=== PATIENT | female | born 1990 | race Caucasian/White ===

== ENCOUNTER 2017-01-18 21:28 | Emergency (ER) | payer OTHER ==
[2017-01-18 21:36] VITALS: RESP 18
--- NOTE | 2017-01-18 22:05 | ED ---
General Adult HPI - General Chief complaint: Abdominal Pain Stated complaint: Abd Pain Time Seen by Provider: 01/18/17 21:42 Source: patient, RN notes reviewed Mode of arrival: ambulatory Limitations: no limitations - History of Present Illness Initial comments: This is a 26-year-old female presents with right lower quadrant pain 2.5 weeks. Patient states pain is intermittent and is associated with diarrhea. Patient also admits to some nausea. Patient denies any vaginal discharge or vaginal bleeding or cramping. Patient states she does have history of ovarian cysts. Patient states she had a test at her PCP today which was negative. Patient states she's also been having fevers daily associated with this pain. Patient denies any vomiting. Patient denies any new sexual partners. Patient denies any dysuria, hematuria, hematochezia. Patient denies any recent fever, chills, shortness breath, chest pain, back pain, numbness, tingling, hematuria, headache, or visual changes, or any other complaints. - Related Data Home Medications Medication Instructions Recorded Confirmed Multivitamins, Thera [Multivitamin] 1 tab PO DAILY 06/21/16 01/18/17 Allergies Allergy/AdvReac Type Severity Reaction Status Date / Time No Known Allergies Allergy Verified 01/18/17 22:22 Review of Systems ROS Statement: Those systems with pertinent positive or pertinent negative responses have been documented in the HPI. ROS Other: All systems not noted in ROS Statement are negative. Past Medical History Additional Past Medical History / Comment(s): MITRAL VALVE PROLAPSE, HEART MURMUR, ovarian cyst History of Any Multi-Drug Resistant Organisms: None Reported Past Surgical History: No Surgical Hx Reported Past Psychological History: Anxiety Smoking Status: Never smoker Past Alcohol Use History: None Reported Past Drug Use History: None Reported General Exam - General Exam Comments Initial Comments: General: The patient is awake and alert, in no distress, and does not appear acutely ill. Eye: Pupils are equal, round and reactive to light, extra-ocular movements are intact. No nystagmus. There is normal conjunctiva bilaterally. No signs of icterus. Ears: TMs pink and pearly with intact cone of light bilaterally. Normal external ear canals Nose: Nasal turbinates pink and moist Mouth and throat: There are moist mucous membranes and no oral lesions. Neck: The neck is supple, there is no tenderness or JVD. Cardiovascular: There is a regular rate and rhythm. No murmur, rub or gallop is appreciated. Respiratory: Lungs are clear to auscultation, respirations are non-labored, breath sounds are equal. No wheezes, stridor, rales, or rhonchi. Gastrointestinal: Mild tenderness to palpation in the right lower quadrant and suprapubic area. Soft, non-distended abdomen without masses or organomegaly noted. There is no rebound or guarding present. No CVA tenderness. Bowel sounds are unremarkable. Musculoskeletal: Normal ROM, no tenderness. Strength 5/5. Sensation intact. Radial pulses equal bilaterally 2+. Neurological: A&O x 3. CN II-XII intact, There are no obvious motor or sensory deficits. Coordination appears grossly intact. Speech is normal. Skin: Skin is warm and dry and no rashes or lesions are noted. Psychiatric: Cooperative, appropriate mood & affect, normal judgment. Limitations: no limitations External exam: Present: normal external exam. Absent: erythema, swelling, lesions Speculum exam: Present: normal speculum exam, vaginal discharge (white/cream cervical mucus present. ). Absent: erythema, vaginal bleeding By manual exam: Present: normal by manual exam. Absent: cervical motion tenderness, adnexal tenderness, adnexal mass, uterine enlargement, uterine tenderness Course Vital Signs 01/18/17 01/19/17 21:31 00:24 Temperature 100 F H 99.0 F Pulse Rate 89 78 Respiratory 18 18 Rate Blood Pressure 117/67 107/51 O2 Sat by Pulse 100 Oximetry Medical Decision Making - Medical Decision Making This is a 26-year-old female presents with right lower quadrant pain 2.5. On physical exam patient is well-appearing with a fever in the EC. Mild tenderness to palpation in the right lower quadrant and suprapubic area. Soft, non- distended abdomen without masses or organomegaly noted. There is no rebound or guarding present. No CVA tenderness. Bowel sounds are unremarkable. No adnexal tenderness or cervical motion tenderness on pelvic exam. Normal speculum exam. Basic labs are drawn. Influenza was checked and came back negative. A UA is done and is negative for UTI. Urine culture pending. A CT scan of the abdomen and pelvis was done and reviewed showing: There is a small amount of free fluid in cul-de-sac. Otherwise negative computed tomography scan of the abdomen and pelvis. Appendix is not seen. There is no sign of appendicitis. Report by Dr. Collins. Discussed results with patient and her mother. I discussed use of Tylenol and Motrin for any pain. Patient was offered a prescription for Zofran but patient refused and states she already has medication at home that she uses for upset stomach. I discussed the patient should drink plenty of fluids. Discussed stool cultures. Discussed return parameters. Patient is afebrile and well-appearing upon discharge. Discussed that patient should follow up with PCP in one to 2 days or return to the [facility] for any worsening symptoms or for any further concerns. Patient was receptive to this plan and patient will be discharged home. I discussed this case with attending physician Dr. Marques who agrees the plan as stated above. - Lab Data Result diagrams: 01/18/17 22:25 01/18/17 22:25 Lab Results 01/18/17 01/18/17 01/18/17 Range/Units 22:14 22:14 22:14 WBC (3.8-10.6) k/uL RBC (3.80-5.40) m/uL Hgb (11.4-16.0) gm/dL Hct (34.0-46.0) % MCV (80.0-100.0) fL MCH (25.0-35.0) pg MCHC (31.0-37.0) g/dL RDW (11.5-15.5) % Plt Count (150-450) k/uL Neutrophils % % Lymphocytes % % Monocytes % % Eosinophils % % Basophils % % Neutrophils # (1.3-7.7) k/uL Lymphocytes # (1.0-4.8) k/uL Monocytes # (0-1.0) k/uL Eosinophils # (0-0.7) k/uL Basophils # (0-0.2) k/uL PT (9.0-12.0) sec INR (<1.1) APTT (22.0-30.0) sec Sodium (137-145) mmol/L Potassium (3.5-5.1) mmol/L Chloride (98-107) mmol/L Carbon Dioxide (22-30) mmol/L Anion Gap mmol/L BUN (7-17) mg/dL Creatinine (0.52-1.04) mg/dL Est GFR (MDRD) Af Amer (>60 ml/min/1.73 sqM) Est GFR (MDRD) Non-Af (>60 ml/min/1.73 sqM) Glucose (74-99) mg/dL Plasma Lactic Acid Juan Francisco (0.7-2.0) mmol/L Calcium (8.4-10.2) mg/dL Total Bilirubin (0.2-1.3) mg/dL AST (14-36) U/L ALT (9-52) U/L Alkaline Phosphatase (38-126) U/L Total Protein (6.3-8.2) g/dL Albumin (3.5-5.0) g/dL Amylase (30-110) U/L Lipase (23-300) U/L HCG, Quant mIU/mL Urine Color Light Yellow Urine Appearance Clear (Clear) Urine pH 6.5 (5.0-8.0) Ur Specific [place] 1.010 (1.001-1.035) Urine Protein Negative (Negative) Urine Glucose (UA) Negative (Negative) Urine Ketones Negative (Negative) Urine Blood Negative (Negative) Urine Nitrite Negative (Negative) Urine Bilirubin Negative (Negative) Urine Urobilinogen <2.0 (<2.0) mg/dL Ur Leukocyte Esterase Negative (Negative) Urine HCG, Qual Not Detected (Not Detectd) Influenza Type A RNA Not Detected (Not Detectd) Influenza Type B (PCR) Not Detected (Not Detectd) Trichomonas Ag (Rapid) (Negative) 01/18/17 01/18/17 01/18/17 Range/Units 22:25 22:25 22:25 WBC 8.7 (3.8-10.6) k/uL RBC 4.59 (3.80-5.40) m/uL Hgb 13.8 (11.4-16.0) gm/dL Hct 41.9 (34.0-46.0) % MCV 91.2 (80.0-100.0) fL MCH 30.1 (25.0-35.0) pg MCHC 33.0 (31.0-37.0) g/dL RDW 12.5 (11.5-15.5) % Plt Count 250 (150-450) k/uL Neutrophils % 62 % Lymphocytes % 29 % Monocytes % 5 % Eosinophils % 1 % Basophils % 1 % Neutrophils # 5.4 (1.3-7.7) k/uL Lymphocytes # 2.5 (1.0-4.8) k/uL Monocytes # 0.5 (0-1.0) k/uL Eosinophils # 0.1 (0-0.7) k/uL Basophils # 0.1 (0-0.2) k/uL PT (9.0-12.0) sec INR (<1.1) APTT (22.0-30.0) sec Sodium 144 (137-145) mmol/L Potassium 4.1 (3.5-5.1) mmol/L Chloride 102 (98-107) mmol/L Carbon Dioxide 27 (22-30) mmol/L Anion Gap 15 mmol/L BUN 13 (7-17) mg/dL Creatinine 0.90 (0.52-1.04) mg/dL Est GFR (MDRD) Af Amer >60 (>60 ml/min/1.73 sqM) Est GFR (MDRD) Non-Af >60 (>60 ml/min/1.73 sqM) Glucose 97 (74-99) mg/dL Plasma Lactic Acid Juan Francisco 1.7 (0.7-2.0) mmol/L Calcium 10.3 H (8.4-10.2) mg/dL Total Bilirubin 0.5 (0.2-1.3) mg/dL AST 20 (14-36) U/L ALT 32 (9-52) U/L Alkaline Phosphatase 53 (38-126) U/L Total Protein 8.4 H (6.3-8.2) g/dL Albumin 4.9 (3.5-5.0) g/dL Amylase 72 (30-110) U/L Lipase 91 (23-300) U/L HCG, Quant <2.4 mIU/mL Urine Color Urine Appearance (Clear) Urine pH (5.0-8.0) Ur Specific [place] (1.001-1.035) Urine Protein (Negative) Urine Glucose (UA) (Negative) Urine Ketones (Negative) Urine Blood (Negative) Urine Nitrite (Negative) Urine Bilirubin (Negative) Urine Urobilinogen (<2.0) mg/dL Ur Leukocyte Esterase (Negative) Urine HCG, Qual (Not Detectd) Influenza Type A RNA (Not Detectd) Influenza Type B (PCR) (Not Detectd) Trichomonas Ag (Rapid) (Negative) 01/18/17 01/18/17 Range/Units 22:25 22:50 WBC (3.8-10.6) k/uL RBC (3.80-5.40) m/uL Hgb (11.4-16.0) gm/dL Hct (34.0-46.0) % MCV (80.0-100.0) fL MCH (25.0-35.0) pg MCHC (31.0-37.0) g/dL RDW (11.5-15.5) % Plt Count (150-450) k/uL Neutrophils % % Lymphocytes % % Monocytes % % Eosinophils % % Basophils % % Neutrophils # (1.3-7.7) k/uL Lymphocytes # (1.0-4.8) k/uL Monocytes # (0-1.0) k/uL Eosinophils # (0-0.7) k/uL Basophils # (0-0.2) k/uL PT 10.9 (9.0-12.0) sec INR 1.1 (<1.1) APTT 25.1 (22.0-30.0) sec Sodium (137-145) mmol/L Potassium (3.5-5.1) mmol/L Chloride (98-107) mmol/L Carbon Dioxide (22-30) mmol/L Anion Gap mmol/L BUN (7-17) mg/dL Creatinine (0.52-1.04) mg/dL Est GFR (MDRD) Af Amer (>60 ml/min/1.73 sqM) Est GFR (MDRD) Non-Af (>60 ml/min/1.73 sqM) Glucose (74-99) mg/dL Plasma Lactic Acid Juan Francisco (0.7-2.0) mmol/L Calcium (8.4-10.2) mg/dL Total Bilirubin (0.2-1.3) mg/dL AST (14-36) U/L ALT (9-52) U/L Alkaline Phosphatase (38-126) U/L Total Protein (6.3-8.2) g/dL Albumin (3.5-5.0) g/dL Amylase (30-110) U/L Lipase (23-300) U/L HCG, Quant mIU/mL Urine Color Urine Appearance (Clear) Urine pH (5.0-8.0) Ur Specific [place] (1.001-1.035) Urine Protein (Negative) Urine Glucose (UA) (Negative) Urine Ketones (Negative) Urine Blood (Negative) Urine Nitrite (Negative) Urine Bilirubin (Negative) Urine Urobilinogen (<2.0) mg/dL Ur Leukocyte Esterase (Negative) Urine HCG, Qual (Not Detectd) Influenza Type A RNA (Not Detectd) Influenza Type B (PCR) (Not Detectd) Trichomonas Ag (Rapid) Negative (Negative) Disposition Clinical Impression: Diarrhea Disposition: HOME SELF-CARE Condition: Good Instructions: Chronic Diarrhea (ED) Additional Instructions: Please of stool cultures done. Please use Tylenol and Motrin for any pain. Please follow-up with her PCP tomorrow or return to the [facility] for any worsening symptoms or for any further concerns. Referrals: Layla Mccann DO [Primary Care Provider] - 1-2 days Time of Disposition: 00:47
[2017-01-18] MEDS ORDERED: SODIUM CHLORIDE 0.9% 1,000 ML IV ONE (22:07)
[2017-01-18] MEDS ORDERED: ACETAMINOPHEN TAB 500 MG TAB PO STA (22:11)
[2017-01-18 22:49] LABS: Basophils # (A) 0.1 k/uL (0-0.2); Basophils % (A) 1 %; CH 30.5; CHCM 33.6; Eosinophils # (A) 0.1 k/uL (0-0.7); Eosinophils % (A) 1 %; HCT 41.9 % (34.0-46.0); HDW 2.53; HGB 13.8 gm/dL (11.4-16.0); Luc % (Auto) 2; Lymphocytes # (A) 2.5 k/uL (1.0-4.8); Lymphocytes % (A) 29 %; MCH 30.1 pg (25.0-35.0); MCV 91.2 fL (80.0-100.0); Mean Platelet Volume 7.3; Monocytes # (A) 0.5 k/uL (0-1.0); Monocytes % (A) 5 %; Neutrophils # (A) 5.4 k/uL (1.3-7.7); Neutrophils % (A) 62 %; RBC 4.59 m/uL (3.80-5.40); RDW 12.5 % (11.5-15.5); WBC 8.7 k/uL (3.8-10.6); WBC (Perox) 8.49
[2017-01-18 22:52] LABS: Appearance,Urine Clear (Clear); Bilirubin,Urine Negative (Negative); Glucose,Urine (UA) Negative (Negative); Ketones,Urine Negative (Negative); Leukocyte Esterase,Urine Negative (Negative); Nitrite,Urine Negative (Negative); PH, Urine 6.5 (5.0-8.0); Protein,Urine Negative (Negative); UA Billing (MACRO vs. MICRO) CHEM; Urobilinogen,Urine <2.0 mg/dL (<2.0)
[2017-01-18 22:57] LABS: INR 1.1 (<1.1); Partial Thromboplastin Time 25.1 sec (22.0-30.0); Prothrombin Time 10.9 sec (9.0-12.0)
[2017-01-18 23:02] LABS: ALT 32 U/L (9-52); AST 20 U/L (14-36); Alkaline Phosphatase 53 U/L (38-126); Amylase 72 U/L (30-110); Anion Gap 15 mmol/L; Blood Urea Nitrogen 13 mg/dL (7-17); Calcium 10.3 mg/dL (8.4-10.2); Carbon Dioxide 27 mmol/L (22-30); Chloride 102 mmol/L (98-107); Glucose 97 mg/dL (74-99); Non-African American GFR(MDRD) >60 (>60 ml/min/1.73 sqM); Potassium 4.1 mmol/L (3.5-5.1); Sodium 144 mmol/L (137-145); Total Bilirubin 0.5 mg/dL (0.2-1.3); Total Protein 8.4 g/dL (6.3-8.2)
[2017-01-18] MEDS ORDERED: RX INFO: IV CONTRAST WAS GIVEN 1 EACH MISC MISCELLANE PRN (23:14)
[2017-01-18 23:18] LABS: HCG,Quantitative Serum <2.4 mIU/mL
--- NOTE | 2017-01-19 00:06 | CT ---
EXAMINATION TYPE: CT abdomen pelvis w con DATE OF EXAM: 01/18/2017 11:59 PM COMPARISON: NONE HISTORY: RLQ pain CT DLP: 317.80 mGycm Automated exposure control for dose reduction was used. TECHNIQUE: Helical acquisition of images was performed from the lung bases through the pelvis. CONTRAST: Performed without Oral Contrast and with IV Contrast, patient injected with 100 mL of Omnipaque 300. FINDINGS: Lung bases are clear. There is no pleural effusion. Liver spleen pancreas gallbladder appear normal. Bile ducts are not dilated. There is no adrenal mass. Kidneys show satisfactory contrast opacification. There is no hydronephrosi s. Bladder distends smoothly. There is no evidence of a pelvic mass. There is a small amount of free fluid in the cul-de-sac. Uterus is anteverted. Bony structures are intact. Appendix is not seen. Ther e is no sign of appendicitis. I see no intestinal wall thickening. There is no retroperitoneal adenop athy. IMPRESSION: THERE IS A SMALL AMOUNT OF FREE FLUID IN THE CUL-DE-SAC. OTHERWISE NEGATIVE CT SCAN OF THE ABDOMEN AN D PELVIS. APPENDIX IS NOT SEEN. THERE IS NO SIGN OF APPENDICITIS.
[2017-01-19 00:26] VITALS: BP 107/51; PULSE 78; TEMP 99
[2017-01-22 09:54] LABS: Chlamydia/GC Source Vaginal
== END 2017-01-19 01:02 | disposition home or self-care (01) ==
LOC: EC 21:28
DX: R19.7 Diarrhea, unspecified (principal); R10.31 Right lower quadrant pain; R11.0 Nausea; Z79.899 Other long term (current) drug therapy
CPT/HCPCS: 96360 ×2; 99284 ×2; 36415; 80053; 87591; 87491; 82150; 83605; 83690; 85025; 85610; 85730; 81003; 81025; 84702; 87040; 87808; 87070; 87086; 87205; 87502; 74177; Q9967

== ENCOUNTER 2017-03-25 20:29 | Emergency (ER) | payer OTHER ==
[2017-03-25] MEDS ORDERED: ACETAMINOPHEN TAB 500 MG TAB PO STA (20:54)
--- NOTE | 2017-03-25 20:54 | ED ---
General Adult HPI - General Chief complaint: Urogenital Stated complaint: Abd Pain Time Seen by Provider: 03/25/17 20:44 Source: patient, RN notes reviewed Mode of arrival: ambulatory Limitations: no limitations - History of Present Illness Initial comments: This a 26-year-old female presents emergency Department chief complaint of lower abdominal pain. Patient states started today she was seen at [facility] today and had a urinalysis, test and an x-ray which showed no acute abnormality. Patient states that she was told to go to ER if symptoms worsen. She states that she seen the pain is worsening and she also noticed some blood when she urinated. Patient has no history kidney stones. 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 She states she's had repeat exams. Patient states she was told she had ovarian cysts in the past states that this pain is slightly different. Patient states that she now she had a fever and states that she actually has actually taken ibuprofen already. Patient denies any back pain, cough or chest congestion. - Related Data Home Medications Medication Instructions Recorded Confirmed Ascorbic Acid [Vitamin C] 500 mg PO DAILY 03/25/17 03/25/17 Cholecalciferol [Vitamin D3] 400 unit PO DAILY 03/25/17 03/25/17 Diazepam 2 mg PO TID PRN 03/25/17 03/25/17 Magnesium 200 mg PO DAILY 03/25/17 03/25/17 PARoxetine [Paxil] 5 mg PO DAILY 03/25/17 03/25/17 Allergies Allergy/AdvReac Type Severity Reaction Status Date / Time No Known Allergies Allergy Verified 03/25/17 20:52 Review of Systems ROS Statement: Those systems with pertinent positive or pertinent negative responses have been documented in the HPI. ROS Other: All systems not noted in ROS Statement are negative. Past Medical History Additional Past Medical History / Comment(s): MITRAL VALVE PROLAPSE, HEART MURMUR, ovarian cyst History of Any Multi-Drug Resistant Organisms: None Reported Past Surgical History: No Surgical Hx Reported Past Psychological History: Anxiety Smoking Status: Never smoker Past Alcohol Use History: None Reported Past Drug Use History: None Reported General Exam Limitations: no limitations General appearance: alert, in no apparent distress Respiratory exam: Present: normal lung sounds bilaterally. Absent: respiratory distress, wheezes, rales, rhonchi, stridor Cardiovascular Exam: Present: regular rate, normal rhythm, normal heart sounds. Absent: systolic murmur, diastolic murmur, rubs, gallop, clicks GI/Abdominal exam: Present: soft, tenderness (Moderate lower abdominal tenderness, right lower, suprapubic region), normal bowel sounds. Absent: distended, guarding, rebound, rigid Back exam: Absent: CVA tenderness (R), CVA tenderness (L) Skin exam: Present: warm, dry, intact, normal color. Absent: rash Course Vital Signs 03/25/17 03/25/17 20:32 22:18 Temperature 100.4 F H 100.1 F H Pulse Rate 82 88 Respiratory 16 18 Rate Blood Pressure 113/77 117/57 O2 Sat by Pulse 100 98 Oximetry Medical Decision Making - Medical Decision Making 26-year-old female presented emergency from for abdominal pain. Patient CT did not show any evidence of inflammatory changes or show no evidence of acute ( though Was not identified. Patient does have a ovarian cyst 1.5 cm patient's pain is below McBurney's point. Patient is left-sided to have acute process this time. Patient was evaluated by Dr. Wheeler increase plan she'll be discharged follow-up return parameters were discussed. - Lab Data Result diagrams: 03/25/17 20:50 03/25/17 20:50 Lab Results 03/25/17 03/25/17 03/25/17 Range/Units 20:38 20:38 20:50 WBC 14.0 H (3.8-10.6) k/uL RBC 4.63 (3.80-5.40) m/uL Hgb 13.8 (11.4-16.0) gm/dL Hct 42.7 (34.0-46.0) % MCV 92.3 (80.0-100.0) fL MCH 29.9 (25.0-35.0) pg MCHC 32.4 (31.0-37.0) g/dL RDW 12.1 (11.5-15.5) % Plt Count 205 (150-450) k/uL Neutrophils % 78 % Lymphocytes % 15 % Monocytes % 5 % Eosinophils % 1 % Basophils % 0 % Neutrophils # 10.9 H (1.3-7.7) k/uL Lymphocytes # 2.1 (1.0-4.8) k/uL Monocytes # 0.7 (0-1.0) k/uL Eosinophils # 0.1 (0-0.7) k/uL Basophils # 0.0 (0-0.2) k/uL Sodium (137-145) mmol/L Potassium (3.5-5.1) mmol/L Chloride (98-107) mmol/L Carbon Dioxide (22-30) mmol/L Anion Gap mmol/L BUN (7-17) mg/dL Creatinine (0.52-1.04) mg/dL Est GFR (MDRD) Af Amer (>60 ml/min/1.73 sqM) Est GFR (MDRD) Non-Af (>60 ml/min/1.73 sqM) Glucose (74-99) mg/dL Calcium (8.4-10.2) mg/dL Total Bilirubin (0.2-1.3) mg/dL AST (14-36) U/L ALT (9-52) U/L Alkaline Phosphatase (38-126) U/L Total Protein (6.3-8.2) g/dL Albumin (3.5-5.0) g/dL Lipase (23-300) U/L Urine Color Light Yellow Urine Appearance Clear (Clear) Urine pH 8.0 (5.0-8.0) Ur Specific Sim[place] 1.007 (1.001-1.035) Urine Protein Negative (Negative) Urine Glucose (UA) Negative (Negative) Urine Ketones Negative (Negative) Urine Blood Small H (Negative) Urine Nitrite Negative (Negative) Urine Bilirubin Negative (Negative) Urine Urobilinogen <2.0 (<2.0) mg/dL Ur Leukocyte Esterase Negative (Negative) Urine WBC <1 (0-5) /hpf Ur Squamous Epith Cells 1 (0-4) /hpf Urine Bacteria Rare H (None) /hpf Urine HCG, Qual Not Detected (Not Detectd) 03/25/17 Range/Units 20:50 WBC (3.8-10.6) k/uL RBC (3.80-5.40) m/uL Hgb (11.4-16.0) gm/dL Hct (34.0-46.0) % MCV (80.0-100.0) fL MCH (25.0-35.0) pg MCHC (31.0-37.0) g/dL RDW (11.5-15.5) % Plt Count (150-450) k/uL Neutrophils % % Lymphocytes % % Monocytes % % Eosinophils % % Basophils % % Neutrophils # (1.3-7.7) k/uL Lymphocytes # (1.0-4.8) k/uL Monocytes # (0-1.0) k/uL Eosinophils # (0-0.7) k/uL Basophils # (0-0.2) k/uL Sodium 145 (137-145) mmol/L Potassium 3.7 (3.5-5.1) mmol/L Chloride 105 (98-107) mmol/L Carbon Dioxide 27 (22-30) mmol/L Anion Gap 13 mmol/L BUN 12 (7-17) mg/dL Creatinine 0.80 (0.52-1.04) mg/dL Est GFR (MDRD) Af Amer >60 (>60 ml/min/1.73 sqM) Est GFR (MDRD) Non-Af >60 (>60 ml/min/1.73 sqM) Glucose 93 (74-99) mg/dL Calcium 10.0 (8.4-10.2) mg/dL Total Bilirubin 0.4 (0.2-1.3) mg/dL AST 31 (14-36) U/L ALT 55 H (9-52) U/L Alkaline Phosphatase 67 (38-126) U/L Total Protein 8.1 (6.3-8.2) g/dL Albumin 5.0 (3.5-5.0) g/dL Lipase 71 (23-300) U/L Urine Color Urine Appearance (Clear) Urine pH (5.0-8.0) Ur Specific [place] (1.001-1.035) Urine Protein (Negative) Urine Glucose (UA) (Negative) Urine Ketones (Negative) Urine Blood (Negative) Urine Nitrite (Negative) Urine Bilirubin (Negative) Urine Urobilinogen (<2.0) mg/dL Ur Leukocyte Esterase (Negative) Urine WBC (0-5) /hpf Ur Squamous Epith Cells (0-4) /hpf Urine Bacteria (None) /hpf Urine HCG, Qual (Not Detectd) Disposition Clinical Impression: Ovarian cyst, Abdominal pain Disposition: HOME SELF-CARE Condition: Stable Instructions: Ovarian Cyst (ED) Additional Instructions: Please return to the Emergency Department if symptoms worsen or any other concerns. Referrals: Layla Mccann DO [Primary Care Provider] - 1-2 days Time of Disposition: 00:28
[2017-03-25 21:12] LABS: Basophils % (A) 0 %; CH 30.5; CHCM 33.2; Eosinophils # (A) 0.1 k/uL (0-0.7); Eosinophils % (A) 1 %; HCT 42.7 % (34.0-46.0); HDW 2.28; HGB 13.8 gm/dL (11.4-16.0); Luc % (Auto) 1; Lymphocytes # (A) 2.1 k/uL (1.0-4.8); Lymphocytes % (A) 15 %; MCH 29.9 pg (25.0-35.0); MCHC 32.4 g/dL (31.0-37.0); MCV 92.3 fL (80.0-100.0); Mean Platelet Volume 7.4; Monocytes # (A) 0.7 k/uL (0-1.0); Monocytes % (A) 5 %; Neutrophils # (A) 10.9 k/uL (1.3-7.7); Neutrophils % (A) 78 %; RBC 4.63 m/uL (3.80-5.40); RDW 12.1 % (11.5-15.5); WBC (Perox) 13.87
[2017-03-25 21:18] LABS: Appearance,Urine Clear (Clear); Bacteria,Urine Rare /hpf; Bilirubin,Urine Negative (Negative); Glucose,Urine (UA) Negative (Negative); Ketones,Urine Negative (Negative); Leukocyte Esterase,Urine Negative (Negative); Nitrite,Urine Negative (Negative); Particle Count 608; Protein,Urine Negative (Negative); Specific Gravity,Urine 1.007 (1.001-1.035); Squamous Epithelial Cell,Urine 1 /hpf (0-4); UA Billing (MACRO vs. MICRO) MICRO; Urobilinogen,Urine <2.0 mg/dL (<2.0); WBC,Urine <1 /hpf (0-5)
[2017-03-25 21:32] LABS: ALT 55 U/L (9-52); AST 31 U/L (14-36); Alkaline Phosphatase 67 U/L (38-126); Anion Gap 13 mmol/L; Blood Urea Nitrogen 12 mg/dL (7-17); Carbon Dioxide 27 mmol/L (22-30); Chloride 105 mmol/L (98-107); Glucose 93 mg/dL (74-99); Non-African American GFR(MDRD) >60 (>60 ml/min/1.73 sqM); Potassium 3.7 mmol/L (3.5-5.1); Sodium 145 mmol/L (137-145); Total Bilirubin 0.4 mg/dL (0.2-1.3); Total Protein 8.1 g/dL (6.3-8.2)
[2017-03-25] MEDS ORDERED: RX INFO: IV CONTRAST WAS GIVEN 1 EACH MISC MISCELLANE PRN (21:34)
--- NOTE | 2017-03-25 22:10 | CT ---
EXAMINATION TYPE: CT abdomen pelvis w con DATE OF EXAM: 03/25/2017 COMPARISON: 01/18/2017 HISTORY: Pt states of lower abd pain. CT DLP: 340.5 mGycm Automated exposure control for dose reduction was used. TECHNIQUE: Helical acquisition of images was performed from the lung bases through the pelvis. CONTRAST: Performed without Oral Contrast and with IV Contrast, patient injected with 100 mL of Omnipaque 300. FINDINGS: Lung bases are clear. There is no pleural effusion. Liver spleen pancreas gallbladder appear normal. Bile ducts are not dilated. There is no adrenal mass. Kidneys show satisfactory contrast opacificatio n. There is no hydronephrosis. Bladder distends smoothly. There is no definite free fluid in the pelv is. Appendix is not seen. There is no sign of appendicitis. There is no sign of a pelvic mass.: IMPRESSION: NEGATIVE CT SCAN OF THE ABDOMEN AND PELVIS. THERE IS SOME FREE FLUID IN THE PELVIS ON THE OLD EXAM BU T IS NOT EVIDENT ON TODAY'S EXAM. APPENDIX IS NOT SEEN AND THERE IS NO SIGN OF APPENDICITIS.
[2017-03-25 22:32] VITALS: RESP 18
--- NOTE | 2017-03-26 00:23 | US ---
EXAM: US Pelvis, Transvaginal CLINICAL HISTORY: Reason: Pain TECHNIQUE: Real-time transvaginal pelvic ultrasound (complete) with image documentation. Transvaginal imaging was used for better evaluation of the endometrium and adnexa. COMPARISON: No relevant prior studies available. FINDINGS: Uterus/cervix: Uterus is of normal configuration measuring 7.3 x 3.1 x 4.0 cm. No myometrial masses identified. No abnormal endometrial thickening. Endometrium measures 3.7 mm. No endometrial fluid collections identified. Right ovary: Right ovary measures 3.2 x 2.2 x 2.1 cm with several small follicles. Right ovarian cyst measuring 1.5 cm in maximum diameter suggesting dominant follicle/follicular cyst. Left ovary measures 3.0 x 2.2 x 2.4 cm with multiple small sub-centimeter follicles. Both ovaries demonstrate normal Doppler vascular flow signal. No abnormal adnexal masses identified. Left ovary: See above. Free fluid: No significant pelvic free fluid. Bladder: Empty bladder which cannot be evaluated with this probe. IMPRESSION: Normal pelvic ultrasound except for small 1.5 cm right ovarian cyst which may reflect dominant follicle.
[2017-03-26 00:51] VITALS: BP 112/66; PULSE 82; TEMP 99.4
== END 2017-03-26 00:50 | disposition home or self-care (01) ==
LOC: EC 20:29
DX: N83.201 Unspecified ovarian cyst, right side (principal); R10.31 Right lower quadrant pain; F41.9 Anxiety disorder, unspecified; Z79.899 Other long term (current) drug therapy
CPT/HCPCS: 36415; 80053; 83690; 85025; 81001; 81025; 87086; 93975; 76830; 74177; 99284; Q9967

== ENCOUNTER 2018-01-21 15:57 | Emergency (ER) | payer OTHER ==
[2018-01-21 16:17] VITALS: PULSE 89; RESP 18
--- NOTE | 2018-01-21 17:57 | ED ---
Extremity Problem HPI - General Chief complaint: Extremity Problem,Nontraumatic Stated complaint: LEG SWELLING Time Seen by Provider: 01/21/18 16:43 Source: patient, RN notes reviewed, old records reviewed Mode of arrival: ambulatory Limitations: no limitations - History of Present Illness Initial comments: This patient is a 27 year old female with CC of paresthesias down both legs, as well as increased swelling. She relates that she stands at work and this is new for her. She reports she has seen PCP and was scheduled for US tmw. She reports she cannot wait anymore. She has no trauma or injury noted. No fevers or chills , chest pain, shortness of breath. - Related Data Home Medications Medication Instructions Recorded Confirmed Cholecalciferol [Vitamin D3] 400 unit PO HS 03/25/17 01/21/18 Ferrous Sulfate [Feosol] 325 mg PO HS 01/21/18 01/21/18 PARoxetine [Paxil] 10 mg PO HS 01/21/18 01/21/18 Potassium 99 mg PO HS 01/21/18 01/21/18 Allergies Allergy/AdvReac Type Severity Reaction Status Date / Time No Known Allergies Allergy Verified 01/21/18 18:12 Review of Systems ROS Statement: Those systems with pertinent positive or pertinent negative responses have been documented in the HPI. ROS Other: All systems not noted in ROS Statement are negative. Past Medical History Additional Past Medical History / Comment(s): MITRAL VALVE PROLAPSE, HEART MURMUR, ovarian cyst History of Any Multi-Drug Resistant Organisms: None Reported Past Surgical History: No Surgical Hx Reported Past Psychological History: Anxiety Smoking Status: Never smoker Past Alcohol Use History: None Reported Past Drug Use History: None Reported General Exam - General Exam Comments Initial Comments: This is a well appearing 27 year old female, no distress. Limitations: no limitations General appearance: alert, in no apparent distress Head exam: Present: atraumatic, normocephalic, normal inspection Eye exam: Present: normal appearance, PERRL, EOMI. Absent: scleral icterus, conjunctival injection, periorbital swelling ENT exam: Present: normal exam, mucous membranes moist Neck exam: Present: normal inspection. Absent: tenderness, meningismus, lymphadenopathy Respiratory exam: Present: normal lung sounds bilaterally. Absent: respiratory distress, wheezes, rales, rhonchi, stridor Cardiovascular Exam: Present: regular rate, normal rhythm, normal heart sounds. Absent: systolic murmur, diastolic murmur, rubs, gallop, clicks GI/Abdominal exam: Present: soft, normal bowel sounds. Absent: distended, tenderness, guarding, rebound, rigid Extremities exam: Present: normal inspection, full ROM, normal capillary refill , other (Normal pulses in bilateral lower extremities. No swelling, no erythema. Full ROM of toes and ankles ). Absent: tenderness, pedal edema, joint swelling, calf tenderness Back exam: Present: normal inspection Neurological exam: Present: alert, oriented X3, CN II-XII intact Psychiatric exam: Present: normal affect, normal mood Skin exam: Present: warm, dry, intact, normal color. Absent: rash Course Vital Signs 01/21/18 01/21/18 16:13 18:47 Temperature 99.4 F 97.9 F Pulse Rate 89 89 Respiratory 18 18 Rate Blood Pressure 138/72 107/55 O2 Sat by Pulse 99 96 Oximetry Medical Decision Making - Medical Decision Making 27 year old female, appears anxious complains of bilateral leg pain and swelling. Patient has a scheduled US tomorrow. She reports she cannot wait, tehrefore US done today. She has no DVT. She has normal appearling legs. Discussed paresthesia can be related to reynauds syndrome, discussed very little concern for compartment syndrome. All questions answered and return parameters discussed. Discussed the symptoms are likely related to her new job where she stands a lot. - Radiology Data Radiology results: report reviewed Ultrasound negative for DVT. Disposition Clinical Impression: Bilateral leg paresthesia Disposition: HOME SELF-CARE Condition: Good Instructions: Raynaud Disease (ED), Paresthesia (ED) Additional Instructions: Patient advised to take any Motrin Tylenol for pain. Follow-up with primary care provider discussed possibility for RAynaud's syndrome. Return to emergency department if any alarming signs or symptoms occur. Referrals: Blaze Darling DO [Primary Care Provider] - 1-2 days Time of Disposition: 18:07
--- NOTE | 2018-01-21 18:01 | US ---
EXAMINATION TYPE: US venous doppler duplex LE BI DATE OF EXAM: 01/21/2018 5:52 PM COMPARISON: NONE CLINICAL HISTORY: Pain. Numbness and pain SIDE PERFORMED: TECHNIQUE: The lower extremity deep venous system is examined utilizing real time linear array sonog rolando with graded compression, doppler sonography and color-flow sonography. VESSELS IMAGED: External Iliac Vein (EIV) Common Femoral Vein Deep Femoral Vein Greater Saphenous Vein * Femoral Vein Popliteal Vein Small Saphenous Vein * Proximal Calf Veins (* superficial vessels) Right Leg: Negative for DVT Left Leg: Negative for DVT No evidence of DVT bilateral legs. IMPRESSION: Normal exam. No evidence of deep venous thrombosis in both legs.
[2018-01-21 18:48] VITALS: BP 107/55; TEMP 97.9
== END 2018-01-21 18:48 | disposition home or self-care (01) ==
LOC: EC 15:57
DX: R20.2 Paresthesia of skin (principal); F41.9 Anxiety disorder, unspecified; Z79.899 Other long term (current) drug therapy
CPT/HCPCS: 93970; 99284

== ENCOUNTER 2018-06-20 17:18 | Emergency (ER) | payer OTHER ==
[2018-06-20 17:56] VITALS: BP 126/70; PULSE 79; RESP 16; TEMP 98.8
[2018-06-20 19:32] LABS: Basophils # (A) 0.1 k/uL (0-0.2); Basophils % (A) 1 %; Eosinophils # (A) 0.2 k/uL (0-0.7); Eosinophils % (A) 3 %; HCT 41.3 % (34.0-46.0); HGB 13.6 gm/dL (11.4-16.0); Lymphocytes # (A) 2.2 k/uL (1.0-4.8); Lymphocytes % (A) 31 %; MCH 29.5 pg (25.0-35.0); MCV 89.6 fL (80.0-100.0); Monocytes # (A) 0.4 k/uL (0-1.0); Monocytes % (A) 6 %; Neutrophils # (A) 3.9 k/uL (1.3-7.7); Neutrophils % (A) 57 %; Platelet Count 263 k/uL (150-450); RBC 4.61 m/uL (3.80-5.40); RDW 12.1 % (11.5-15.5); WBC 6.8 k/uL (3.8-10.6)
[2018-06-20 19:36] LABS: Partial Thromboplastin Time 24.8 sec (22.0-30.0)
[2018-06-20 19:39] LABS: ALT 31 U/L (9-52); AST 23 U/L (14-36); Albumin 4.5 g/dL (3.5-5.0); Alkaline Phosphatase 53 U/L (38-126); Anion Gap 9 mmol/L; Blood Urea Nitrogen 20 mg/dL (7-17); Calcium 9.5 mg/dL (8.4-10.2); Carbon Dioxide 26 mmol/L (22-30); Chloride 105 mmol/L (98-107); Glucose 81 mg/dL (74-99); Potassium 3.9 mmol/L (3.5-5.1); Sodium 140 mmol/L (137-145); Total Bilirubin 0.3 mg/dL (0.2-1.3); Total Protein 7.7 g/dL (6.3-8.2)
[2018-06-20 19:45] LABS: Creatine Kinase 138 U/L (30-135)
[2018-06-20 19:59] LABS: Creatine Kinase MB 0.8 ng/mL (0.0-2.4); Troponin I <0.012 ng/mL (0.000-0.034)
[2018-06-20] MEDS ORDERED: SODIUM CHLORIDE 0.9% 1,000 ML IV ONE (21:20)
--- NOTE | 2018-06-20 21:20 | ED ---
Dizziness HPI - General Chief Complaint: Dizziness Stated Complaint: lightheaded Time Seen by Provider: 06/20/18 21:05 Source: patient Mode of arrival: ambulatory Limitations: no limitations - History of Present Illness Initial Comments: 27-year-old woman who presents to be evaluated for feeling of lightheadedness, some fatigue, a strange feeling in her ears, and stating that intermittently her vision will go dark. She states she has had episodes of these going back probably for several years or so. She has been seen by multiple physicians and states that they never find anything. MD Complaint: dizziness, lightheadedness -: hour(s) Timing: intermittent Description: lightheadedness History of Same: Yes History of Trauma: No Severity: mild Improves With: remaining still Worsens With: exertion Associated Symptoms: other - Related Data Home Medications Medication Instructions Recorded Confirmed Cholecalciferol [Vitamin D3] 400 unit PO HS 03/25/17 01/21/18 Ferrous Sulfate [Feosol] 325 mg PO HS 01/21/18 01/21/18 PARoxetine [Paxil] 10 mg PO HS 01/21/18 01/21/18 Potassium 99 mg PO HS 01/21/18 01/21/18 Allergies Allergy/AdvReac Type Severity Reaction Status Date / Time No Known Allergies Allergy Verified 06/20/18 17:55 Review of Systems ROS Statement: Those systems with pertinent positive or pertinent negative responses have been documented in the HPI. ROS Other: All systems not noted in ROS Statement are negative. Constitutional: Denies: fever, chills, weakness Eyes: Denies: eye pain, vision change ENT: Reports: congestion. Denies: throat pain Respiratory: Denies: cough, dyspnea Cardiovascular: Denies: chest pain, palpitations, edema, syncope Gastrointestinal: Denies: abdominal pain, nausea, vomiting Genitourinary: Denies: dysuria, hematuria Skin: Denies: rash, lesions Neurological: Denies: headache, weakness, numbness Psychiatric: Reports: anxiety Past Medical History Additional Past Medical History / Comment(s): MITRAL VALVE PROLAPSE, HEART MURMUR, ovarian cyst History of Any Multi-Drug Resistant Organisms: None Reported Past Surgical History: No Surgical Hx Reported Past Psychological History: Anxiety Smoking Status: Never smoker Past Alcohol Use History: None Reported Past Drug Use History: None Reported General Exam Limitations: no limitations General appearance: alert, in no apparent distress Head exam: Present: atraumatic, normocephalic Eye exam: Present: normal appearance. Absent: scleral icterus, conjunctival injection ENT exam: Present: normal oropharynx Neck exam: Present: normal inspection, full ROM Respiratory exam: Present: normal lung sounds bilaterally. Absent: respiratory distress, wheezes, rales, rhonchi, stridor Cardiovascular Exam: Present: regular rate, normal rhythm, normal heart sounds. Absent: systolic murmur, diastolic murmur, rubs, gallop GI/Abdominal exam: Present: soft. Absent: distended, tenderness, guarding, rebound, rigid, mass Extremities exam: Present: normal inspection, normal capillary refill. Absent: pedal edema, calf tenderness Back exam: Present: normal inspection. Absent: CVA tenderness (R), CVA tenderness (L) Neurological exam: Present: alert, oriented X3, normal gait Skin exam: Present: warm, dry, intact, normal color. Absent: rash Course Vital Signs 06/20/18 17:54 Temperature 98.8 F Pulse Rate 79 Respiratory 16 Rate Blood Pressure 126/70 O2 Sat by Pulse 99 Oximetry EKG Findings - EKG Results: EKG: interpreted by ERMD, sinus rhythm (Rate approximate 64 bpm), normal axis, normal QRS, normal ST/T, no acute changes Medical Decision Making - Lab Data Result diagrams: 06/20/18 19:18 06/20/18 19:18 Lab Results 06/20/18 06/20/18 06/20/18 Range/Units 19:18 19:18 19:18 WBC 6.8 (3.8-10.6) k/uL RBC 4.61 (3.80-5.40) m/uL Hgb 13.6 (11.4-16.0) gm/dL Hct 41.3 (34.0-46.0) % MCV 89.6 (80.0-100.0) fL MCH 29.5 (25.0-35.0) pg MCHC 33.0 (31.0-37.0) g/dL RDW 12.1 (11.5-15.5) % Plt Count 263 (150-450) k/uL Neutrophils % 57 % Lymphocytes % 31 % Monocytes % 6 % Eosinophils % 3 % Basophils % 1 % Neutrophils # 3.9 (1.3-7.7) k/uL Lymphocytes # 2.2 (1.0-4.8) k/uL Monocytes # 0.4 (0-1.0) k/uL Eosinophils # 0.2 (0-0.7) k/uL Basophils # 0.1 (0-0.2) k/uL PT (9.0-12.0) sec INR (<1.2) APTT (22.0-30.0) sec Sodium 140 (137-145) mmol/L Potassium 3.9 (3.5-5.1) mmol/L Chloride 105 (98-107) mmol/L Carbon Dioxide 26 (22-30) mmol/L Anion Gap 9 mmol/L BUN 20 H (7-17) mg/dL Creatinine 0.97 (0.52-1.04) mg/dL Est GFR (CKD-EPI)AfAm >90 (>60 ml/min/1.73 sqM) Est GFR (CKD-EPI)NonAf 80 (>60 ml/min/1.73 sqM) Glucose 81 (74-99) mg/dL POC Glucose (mg/dL) (75-99) mg/dL POC Glu Retail Worker ID Calcium 9.5 (8.4-10.2) mg/dL Total Bilirubin 0.3 (0.2-1.3) mg/dL AST 23 (14-36) U/L ALT 31 (9-52) U/L Alkaline Phosphatase 53 (38-126) U/L Total Creatine Kinase 138 H (30-135) U/L CK-MB (CK-2) 0.8 (0.0-2.4) ng/mL CK-MB (CK-2) Rel Index 0.6 Troponin I <0.012 (0.000-0.034) ng/mL Total Protein 7.7 (6.3-8.2) g/dL Albumin 4.5 (3.5-5.0) g/dL 06/20/18 06/20/18 Range/Units 19:18 21:20 WBC (3.8-10.6) k/uL RBC (3.80-5.40) m/uL Hgb (11.4-16.0) gm/dL Hct (34.0-46.0) % MCV (80.0-100.0) fL MCH (25.0-35.0) pg MCHC (31.0-37.0) g/dL RDW (11.5-15.5) % Plt Count (150-450) k/uL Neutrophils % % Lymphocytes % % Monocytes % % Eosinophils % % Basophils % % Neutrophils # (1.3-7.7) k/uL Lymphocytes # (1.0-4.8) k/uL Monocytes # (0-1.0) k/uL Eosinophils # (0-0.7) k/uL Basophils # (0-0.2) k/uL PT 10.0 (9.0-12.0) sec INR 1.0 (<1.2) APTT 24.8 (22.0-30.0) sec Sodium (137-145) mmol/L Potassium (3.5-5.1) mmol/L Chloride (98-107) mmol/L Carbon Dioxide (22-30) mmol/L Anion Gap mmol/L BUN (7-17) mg/dL Creatinine (0.52-1.04) mg/dL Est GFR (CKD-EPI)AfAm (>60 ml/min/1.73 sqM) Est GFR (CKD-EPI)NonAf (>60 ml/min/1.73 sqM) Glucose (74-99) mg/dL POC Glucose (mg/dL) 99 (75-99) mg/dL POC Glu Retail Worker ID Mildred Lovett Calcium (8.4-10.2) mg/dL Total Bilirubin (0.2-1.3) mg/dL AST (14-36) U/L ALT (9-52) U/L Alkaline Phosphatase (38-126) U/L Total Creatine Kinase (30-135) U/L CK-MB (CK-2) (0.0-2.4) ng/mL CK-MB (CK-2) Rel Index Troponin I (0.000-0.034) ng/mL Total Protein (6.3-8.2) g/dL Albumin (3.5-5.0) g/dL Disposition Clinical Impression: Lightheadedness Disposition: HOME SELF-CARE Condition: Good Instructions: Dizziness (ED) Is patient prescribed a controlled substance at d/c from ED?: No Referrals: Blaze Darling DO [REFERRING] - 1-2 days
[2018-06-20 21:23] LABS: Glucose,Whole Blood 99 mg/dL (75-99)
== END 2018-06-20 21:35 | disposition home or self-care (01) ==
LOC: EC 17:18
DX: R42 Dizziness and giddiness (principal); R53.83 Other fatigue; F41.9 Anxiety disorder, unspecified; Z79.899 Other long term (current) drug therapy; Z53.20 Procedure and treatment not carried out because of patient's decision for unspecified reasons
CPT/HCPCS: 36415; 80053; 82550; 82553; 84484; 85025; 85610; 85730; 93005; 99284

== ENCOUNTER 2018-07-01 16:05 | Emergency (ER) | payer OTHER ==
[2018-07-01 17:05] VITALS: BP 122/56; PULSE 90; RESP 20; TEMP 99
--- NOTE | 2018-07-01 18:23 | ED ---
Fever HPI - General Source: patient, RN notes reviewed Mode of arrival: ambulatory Limitations: no limitations <Rome Carmona - Last Filed: 07/01/18 19:12> <Lizbet Platt - Last Filed: 07/02/18 07:55> - General Chief Complaint: Fever Stated Complaint: Fever, Chills, Chest Pain Time Seen by Provider: 07/01/18 18:06 - History of Present Illness Initial Comments: This a 27-year-old female presents emergency Department chief complaint of fever. Patient states she has not felt well over the last 2 days. Patient states she started with chills and fever yesterday. Patient now has congestion , sore throat and states that she feels achy all over. She states that she has pain in her ribs when she coughs. Denies any nausea and diarrhea constipation. Denies any chance . Patient states that she has had multiple sick contacts. Denies ear pain, neck pain, neck stiffness. (Rome Carmona) - Related Data Home Medications Medication Instructions Recorded Confirmed Cholecalciferol [Vitamin D3] 400 unit PO HS 03/25/17 01/21/18 Ferrous Sulfate [Feosol] 325 mg PO HS 01/21/18 01/21/18 PARoxetine [Paxil] 10 mg PO HS 01/21/18 01/21/18 Potassium 99 mg PO HS 01/21/18 01/21/18 Previous Rx's Medication Instructions Recorded Amoxicillin/Potassium Clav 1 tab PO Q12HR #20 tab 07/01/18 [Augmentin 875-125 Tablet] Allergies Allergy/AdvReac Type Severity Reaction Status Date / Time No Known Allergies Allergy Verified 07/01/18 17:05 Review of Systems ROS Other: All systems not noted in ROS Statement are negative. <Rome Carmona - Last Filed: 07/01/18 19:12> ROS Other: All systems not noted in ROS Statement are negative. <Lizbet Platt - Last Filed: 07/02/18 07:55> ROS Statement: Those systems with pertinent positive or pertinent negative responses have been documented in the HPI. Past Medical History Additional Past Medical History / Comment(s): MITRAL VALVE PROLAPSE, HEART MURMUR, ovarian cyst History of Any Multi-Drug Resistant Organisms: None Reported Past Surgical History: No Surgical Hx Reported Past Psychological History: Anxiety Smoking Status: Never smoker Past Alcohol Use History: None Reported Past Drug Use History: None Reported <Rome Carmona - Last Filed: 07/01/18 19:12> General Exam Limitations: no limitations General appearance: alert, in no apparent distress Head exam: Present: atraumatic, normocephalic, normal inspection Eye exam: Present: normal appearance, PERRL, EOMI. Absent: scleral icterus, conjunctival injection, periorbital swelling ENT exam: Present: mucous membranes moist, TM's normal bilaterally, normal external ear exam. Absent: normal oropharynx (Erythematous tonsillar region, left tonsil a large versus right, swallowing secretions well no obvious abscess) Neck exam: Present: normal inspection, full ROM, lymphadenopathy (Anterior cervical). Absent: tenderness, meningismus Respiratory exam: Present: normal lung sounds bilaterally, chest wall tenderness. Absent: respiratory distress, wheezes, rales, rhonchi, stridor Cardiovascular Exam: Present: regular rate, normal rhythm, normal heart sounds. Absent: systolic murmur, diastolic murmur, rubs, gallop, clicks GI/Abdominal exam: Present: soft, normal bowel sounds. Absent: distended, tenderness, guarding, rebound, rigid <Rome Carmona - Last Filed: 07/01/18 19:12> Vital Signs 07/01/18 17:04 Temperature 99.0 F Pulse Rate 90 Respiratory 20 Rate Blood Pressure 122/56 O2 Sat by Pulse 99 Oximetry Medical Decision Making <Rome Carmona - Last Filed: 07/01/18 19:12> <Lizbet Platt - Last Filed: 07/02/18 07:55> - Medical Decision Making 19-year-old presented for fever or chills sore throat. Patient has acute pharyngitis/tonsillitis. Patient we treated with Augmentin at this time. Patient is advised take Tylenol, Motrin and follow-up with PCP return parameters were discussed. (Rome Carmona) I was available for consultation in the emergency department. The history and physical exam were done by the Midlevel Provider. Medical decision making was done by the Midlevel Provider. The Midlevel Provider did not contact me for this patient's care. I was not directly involved in this patient's care. (Platt,Lizbet P) Disposition Is patient prescribed a controlled substance at d/c from ED?: No Time of Disposition: 19:13 <Rome Carmona M - Last Filed: 07/01/18 19:12> <Lizbet Platt - Last Filed: 07/02/18 07:55> Clinical Impression: Acute tonsillitis, Acute pharyngitis Disposition: HOME SELF-CARE Condition: Stable Instructions: Tonsillitis (ED) Additional Instructions: Please return to the Emergency Department if symptoms worsen or any other concerns. Prescriptions: Amoxicillin/Potassium Clav [Augmentin 875-125 Tablet] 1 tab PO Q12HR #20 tab Referrals: Blaze Darling DO [Primary Care Provider] - 1-2 days
--- NOTE | 2018-07-01 19:14 | XR ---
EXAMINATION: XR chest 2V DATE AND TIME: 07/01/2018 6:26 PM CLINICAL INDICATION: Cough/pain TECHNIQUE: PA and lateral COMPARISON: None. FINDINGS: The lungs are clear. The pleural spaces are negative. The cardiac silhouette is not enlarged. The remainder of the mediastinal silhouette is unremarkable. The skeletal structures and soft tissues are negative for acute findings. IMPRESSION: NO ACUTE PROCESS.
== END 2018-07-01 19:19 | disposition home or self-care (01) ==
LOC: EC 16:05
DX: J02.9 Acute pharyngitis, unspecified (principal); F41.9 Anxiety disorder, unspecified; Z79.899 Other long term (current) drug therapy
CPT/HCPCS: 71046; 99283

== ENCOUNTER 2018-08-03 01:37 | Emergency (ER) | payer OTHER ==
[2018-08-03 01:43] VITALS: RESP 16; TEMP 96.9
[2018-08-03] MEDS ORDERED: KETOROLAC 30 MG/ML 1 ML VIAL IM STA (01:55)
[2018-08-03] MEDS ORDERED: IBUPROFEN 600 MG STARTER PACK 4 TAB BTL PO STA (02:25)
[2018-08-03 02:29] LABS: Appearance,Urine Cloudy (Clear); Bacteria,Urine Occasional /hpf; Bilirubin,Urine Negative (Negative); Blood,Urine Negative (Negative); Color,Urine Light Yellow; Glucose,Urine (UA) Negative (Negative); Ketones,Urine Negative (Negative); Leukocyte Esterase,Urine Large (Negative); Mucus,Urine Rare /hpf; Nitrite,Urine Negative (Negative); Protein,Urine Negative (Negative); RBC,Urine 4 /hpf (0-5); Specific Gravity,Urine 1.019 (1.001-1.035); Squamous Epithelial Cell,Urine 5 /hpf (0-4); Urobilinogen,Urine <2.0 mg/dL (<2.0); WBC,Urine 4 /hpf (0-5)
--- NOTE | 2018-08-03 02:41 | XR ---
EXAMINATION TYPE: XR chest 2V DATE OF EXAM: 08/03/2018 COMPARISON: 07/01/2018 HISTORY: Chest pain TECHNIQUE: Frontal and lateral views of the chest are obtained. FINDINGS: Heart and mediastinum are normal. Lungs are clear. Diaphragm is normal. Bony thorax is int act. IMPRESSION: Normal chest. No change.
--- NOTE | 2018-08-03 03:21 | ED ---
Chest Pain HPI - General Source: patient Mode of arrival: ambulatory Limitations: no limitations <Jasmina Nobles - Last Filed: 08/03/18 05:12> <Lizbet Platt - Last Filed: 08/03/18 06:23> - General Chief Complaint: Chest Pain Stated Complaint: Chest/back Pain Time Seen by Provider: 08/03/18 01:45 - History of Present Illness Initial Comments: 27-year-old female patient presents to the emergency department today for complaints of bilateral rib pain. Patient states that the pain seems to start in her mid back and radiates around. Patient describes the pain as a burning type pain that worsens when lying down, lying on her side or performing a twisting motion. Stated the pain has been present for the last 3 weeks when she had a viral upper respiratory infection. Patient denies any known injury or change in physical activity. Denies any increase in the pain with deep breathing. Denies any chest pain, cough or congestion. Denies any dizziness or weakness. Denies any shortness of breath. Has not had any fevers or chills. Denies any use of oral contraceptives. Denies any recent travel or long car rides. Denies any calf pain or redness. Patient denies any recent rash , abdominal pain, nausea, vomiting, diarrhea, constipation, numbness, tingling, dizziness, weakness, hematuria, dysuria, urinary urgency, urinary frequency, headache, visual changes, or any other complaints. She is unsure if she is . (Jasmina Nobles) - Related Data Home Medications Medication Instructions Recorded Confirmed Cholecalciferol [Vitamin D3] 400 unit PO HS 03/25/17 01/21/18 Ferrous Sulfate [Feosol] 325 mg PO HS 01/21/18 01/21/18 PARoxetine [Paxil] 10 mg PO HS 01/21/18 01/21/18 Potassium 99 mg PO HS 01/21/18 01/21/18 Previous Rx's Medication Instructions Recorded Amoxicillin/Potassium Clav 1 tab PO Q12HR #20 tab 07/01/18 [Augmentin 875-125 Tablet] Ibuprofen [Motrin] 600 mg PO Q8HR PRN #90 tab 08/03/18 Allergies Allergy/AdvReac Type Severity Reaction Status Date / Time No Known Allergies Allergy Verified 07/01/18 17:05 Review of Systems ROS Other: All systems not noted in ROS Statement are negative. <Jasmina Nboles - Last Filed: 08/03/18 05:12> ROS Other: All systems not noted in ROS Statement are negative. <Lizbet Platt Eliazar - Last Filed: 08/03/18 06:23> ROS Statement: Those systems with pertinent positive or pertinent negative responses have been documented in the HPI. EKG Findings - EKG Comments: EKG Findings:: EKG obtained at oh to 18 shows normal sinus rhythm with a ventricular rate of 71, NC interval 140, QRS duration 84, QT 372, QTc 404. No evidence of ST elevation or depression. <Jasmina Nobles - Last Filed: 08/03/18 05:12> Past Medical History Additional Past Medical History / Comment(s): MITRAL VALVE PROLAPSE, HEART MURMUR, ovarian cyst History of Any Multi-Drug Resistant Organisms: None Reported Past Surgical History: No Surgical Hx Reported Past Psychological History: Anxiety Smoking Status: Never smoker Past Alcohol Use History: None Reported Past Drug Use History: None Reported <Jasmina Nobles - Last Filed: 08/03/18 05:12> General Exam Limitations: no limitations General appearance: alert, in no apparent distress, other (This is a well- developed, well-nourished adult female patient in no acute distress. Vital signs upon presentation are temperature 96.9F, pulse 90, respirations 16, blood pressure 115/62, pulse ox 96% on room air) Eye exam: Present: normal appearance, PERRL, EOMI. Absent: scleral icterus, conjunctival injection, periorbital swelling ENT exam: Present: normal exam, normal oropharynx, mucous membranes moist Neck exam: Present: normal inspection. Absent: tenderness, meningismus, lymphadenopathy Respiratory exam: Present: normal lung sounds bilaterally, chest wall tenderness (Bilateral rib tenderness). Absent: respiratory distress, wheezes, rales, rhonchi, stridor Cardiovascular Exam: Present: regular rate, normal rhythm, normal heart sounds. Absent: systolic murmur, diastolic murmur, rubs, gallop, clicks GI/Abdominal exam: Present: soft, normal bowel sounds. Absent: distended, tenderness, guarding, rebound, rigid Back exam: Present: normal inspection, tenderness (Bilateral posterior rib tenderness) Neurological exam: Present: alert, oriented X3, CN II-XII intact Psychiatric exam: Present: normal affect, normal mood Skin exam: Present: warm, dry, intact, normal color. Absent: rash <Jasmina Nobles - Last Filed: 08/03/18 05:12> Vital Signs 08/03/18 08/03/18 01:39 03:28 Temperature 96.9 F L Pulse Rate 90 75 Respiratory 16 16 Rate Blood Pressure 115/62 112/66 O2 Sat by Pulse 96 Oximetry Chest Pain MDM <Jasmina Nobles - Last Filed: 08/03/18 05:12> <Lizbet Platt - Last Filed: 08/03/18 06:23> - [facility] RADIOLOGY:Two-view x-ray of the chest is obtained. Heart and mediastinum are normal. Lungs are clear. Diaphragm is normal. Bony thorax is intact. Impression by Dr. Collins shows normal chest with no change. 27-year-old female patient presented to the emergency department today with complaints of bilateral rib pain that wraps around to her back. Patient reports pain worsens when lying on her sides her on her back and with twisting motion. Patient reports tenderness to the ribs. Physical examination did reveal bilateral rib tenderness. Chest x-ray showed no acute cardiopulmonary process. EKG showed normal sinus rhythm. Vital signs are stable with no evidence of fever. Patient's symptoms are consistent with costochondritis. Patient has negative per criteria therefore low probability of pulmonary embolism. We did discuss use of anti-inflammatory medication for pain relief. We discussed use of ice and heat. She is instructed to follow-up with her primary care physician for recheck in 1-2 days. Return parameters discussed in detail. She verbalizes understanding and agrees with this plan. (Jasmina Nobles) I was available for consultation in the emergency department. The history and physical exam were done by the midlevel provider. I was consulted for this patient's care. I reviewed the case with the midlevel provider and based on their presentation of the patient, I agree with the assessment, medical decision making and plan of care as documented. (Lizbet Platt) Disposition Is patient prescribed a controlled substance at d/c from ED?: No Time of Disposition: 03:21 <Jasmina Nobles - Last Filed: 08/03/18 05:12> <Lizbet Platt - Last Filed: 08/03/18 06:23> Clinical Impression: Costochondritis Disposition: HOME SELF-CARE Condition: Good Instructions: Costochondritis (ED) Additional Instructions: Apply warm moist heat to the ribs. Take anti-inflammatory medications 3 times daily with meals. Follow-up with your primary care physician for recheck in 1- 2 days. Return here immediately for any new, worsening, or concerning symptoms. Prescriptions: Ibuprofen [Motrin] 600 mg PO Q8HR PRN #90 tab PRN Reason: Pain Referrals: Layla Mccann DO [Primary Care Provider] - 1-2 days
[2018-08-03 03:30] VITALS: BP 112/66; PULSE 75
== END 2018-08-03 03:31 | disposition home or self-care (01) ==
LOC: EC 01:37
DX: M94.0 Chondrocostal junction syndrome [Tietze] (principal); F41.9 Anxiety disorder, unspecified; Z79.899 Other long term (current) drug therapy
CPT/HCPCS: 71046; 81001; 81025; 87086; 93005; 99285

== ENCOUNTER → 2018-08-13 | Outpatient (CLI) | payer OTHER ==
--- NOTE | 2018-08-13 15:52 | MR ---
EXAMINATION TYPE: MR lumbar spine wo con DATE OF EXAM: 08/13/2018 2:23 PM COMPARISON: NONE HISTORY: Low back pain Multiplanar, MultiSpin echo imaging of the lumbar spine was performed. L1-L2: Normal disc appearance without desiccation. No herniation, protrusion or disc bulging. No ca nal stenosis is present. Foramina are patent bilaterally. L2-L3: Normal disc appearance without desiccation. No herniation, protrusion or disc bulging. No ca nal stenosis is present. Foramina are patent bilaterally. L3-L4: Normal disc appearance without desiccation. No herniation, protrusion or disc bulging. No ca nal stenosis is present. Foramina are patent bilaterally. L4-L5: Mild disc desiccation. Subligamentous disc protrusion posterocentrally with annular tear. Mild effacement ventral thecal sac. No evidence for central stenosis or lateral recess stenosis. Foramina are patent. L5-S1: Moderate disc desiccation. Posterocentral subligamentous disc herniation posterocentrally. E ffacement ventral thecal sac. Mild bilateral lateral recess stenosis. No evidence for central stenosi s. Foramina are patent bilaterally. Lumbar segments are intact. No paraspinal masses are identified. Conus medullaris has a normal appe arance. IMPRESSION: 1. Disc herniation at L5-S1 disc protrusion at L4-5 as discussed above.
== END | disposition home or self-care (01) ==
LOC: RADMRIMAIN 13:36
PROVIDERS: ATTEND Family Medicine
DX: M48.061 Spinal stenosis, lumbar region without neurogenic claudication (principal); M51.27 Other intervertebral disc displacement, lumbosacral region
CPT/HCPCS: 72148

== ENCOUNTER 2018-09-02 14:46 | Emergency (ER) | payer OTHER ==
[2018-09-02 16:45] LABS: Appearance,Urine Clear (Clear); Bilirubin,Urine Negative (Negative); Blood,Urine Negative (Negative); Color,Urine Light Yellow; Glucose,Urine (UA) Negative (Negative); Ketones,Urine Negative (Negative); Leukocyte Esterase,Urine Negative (Negative); Nitrite,Urine Negative (Negative); PH, Urine 5.5 (5.0-8.0); Protein,Urine Negative (Negative); Specific Gravity,Urine 1.007 (1.001-1.035); Urobilinogen,Urine <2.0 mg/dL (<2.0)
[2018-09-02 16:47] VITALS: RESP 16; TEMP 99.2
[2018-09-02 16:50] LABS: Basophils % (A) 0 %; Eosinophils # (A) 0.2 k/uL (0-0.7); Eosinophils % (A) 2 %; HCT 39.7 % (34.0-46.0); HGB 13.5 gm/dL (11.4-16.0); Lymphocytes # (A) 1.5 k/uL (1.0-4.8); Lymphocytes % (A) 20 %; MCH 29.7 pg (25.0-35.0); MCHC 33.9 g/dL (31.0-37.0); MCV 87.7 fL (80.0-100.0); Monocytes # (A) 0.4 k/uL (0-1.0); Monocytes % (A) 5 %; Neutrophils # (A) 5.3 k/uL (1.3-7.7); Neutrophils % (A) 71 %; Platelet Count 252 k/uL (150-450); RBC 4.53 m/uL (3.80-5.40); RDW 12.1 % (11.5-15.5); WBC 7.5 k/uL (3.8-10.6)
[2018-09-02 16:54] LABS: ALT 33 U/L (9-52); AST 24 U/L (14-36); Albumin 4.4 g/dL (3.5-5.0); Alkaline Phosphatase 50 U/L (38-126); Anion Gap 8 mmol/L; Blood Urea Nitrogen 18 mg/dL (7-17); Calcium 9.7 mg/dL (8.4-10.2); Carbon Dioxide 28 mmol/L (22-30); Chloride 104 mmol/L (98-107); Glucose 118 mg/dL (74-99); Potassium 4.1 mmol/L (3.5-5.1); Sodium 140 mmol/L (137-145); Total Bilirubin 0.3 mg/dL (0.2-1.3); Total Protein 7.7 g/dL (6.3-8.2)
--- NOTE | 2018-09-02 17:11 | XR ---
EXAMINATION TYPE: XR chest 2V DATE OF EXAM: 09/02/2018 COMPARISON: 08/03/2018 HISTORY: Shoulder pain TECHNIQUE: Frontal and lateral views of the chest are obtained. FINDINGS: Heart and mediastinum are normal. Lungs are clear. Diaphragm is normal. Bony thorax is int act. Pulmonary vascularity is normal. IMPRESSION: Normal chest. No change.
--- NOTE | 2018-09-02 17:14 | XR ---
EXAMINATION TYPE: XR lumbar spine 2 or 3V DATE OF EXAM: 09/02/2018 COMPARISON: NONE HISTORY: Back pain TECHNIQUE: 3 views FINDINGS: Lumbar vertebra have normal spacing and alignment. Posterior elements are intact. Sacroilia c joints appear normal. IMPRESSION: Normal lumbar spine.
--- NOTE | 2018-09-02 17:15 | XR ---
EXAMINATION TYPE: XR thoracic spine 2V DATE OF EXAM: 09/02/2018 COMPARISON: NONE HISTORY: Back pain TECHNIQUE: 3 views FINDINGS: Thoracic vertebra have normal spacing and alignment. Posterior elements are intact. There i s no paraspinal mass. IMPRESSION: Normal thoracic spine exam.
[2018-09-02] MEDS ORDERED: KETOROLAC 60 MG/2 ML VIAL IM STA (17:29)
--- NOTE | 2018-09-02 17:45 | ED ---
General Adult HPI - General Chief complaint: Back Pain/Injury Stated complaint: back pain Source: patient, RN notes reviewed, old records reviewed Mode of arrival: ambulatory Limitations: no limitations - History of Present Illness Initial comments: 28-year-old female patient presents to ED with bilateral rib pain, shoulder pain , thoracic back pain. Patient was diagnosed at this ED with costochondritis approximately 4 weeks ago. At that time 4 weeks ago the patient was experiencing similar symptoms of bilateral rib pain, back pain. Pt was additionally evaluated 2 weeks ago at [facility] for similar symptoms. Patient states that this pain she is experiencing has been similar for a month. However the pain in both of her shoulders has been ongoing for approximately 2 weeks. Patient has additional pain in her thoracic spine all laying down. Patient states that nonsteroidal anti-inflammatories have been moderately effective in treating her symptoms. patient states that her pain is reproducible upon palpation. Patient has additional complaint of 2 days history rhinitis, congestion, sneezing. Patient denies chest pain, shortness of breath, heart palpitations, pleuritic chest pain, abdominal pain, nausea vomiting diarrhea. Patient has not had recent prolonged travel. Patient denies using oral contraceptives. Patient has history of PE. Systemic: Pt denies fatigue, myalgia, fever/chills, rash. Pt denies weakness, night sweats, weight loss. Neuro: Pt denies headache, visual disturbances, syncope or pre-syncope. HEENT: Pt denies ocular discharge or irritation, otalgia, pharyngitis or notable lymphadenopathy. Cardiopulmonary: Pt denies chest pain, SOB, heart palpitations, dyspnea on exertion. Abdominal/GI: Pt denies abdominal pain, n/v/d. : Pt denies dysuria, burning w/ urination, frequency/urgency. Denies new onset urinary or bowel incontinence. MSK: Pt denies myalgia, loss of strength or function in extremities. - Related Data Home Medications Medication Instructions Recorded Confirmed Cholecalciferol [Vitamin D3] 400 unit PO HS 03/25/17 01/21/18 Ferrous Sulfate [Feosol] 325 mg PO HS 01/21/18 01/21/18 PARoxetine [Paxil] 10 mg PO HS 01/21/18 01/21/18 Potassium 99 mg PO HS 01/21/18 01/21/18 Previous Rx's Medication Instructions Recorded Amoxicillin/Potassium Clav 1 tab PO Q12HR #20 tab 07/01/18 [Augmentin 875-125 Tablet] Ibuprofen [Motrin] 600 mg PO Q8HR PRN #90 tab 08/03/18 Ibuprofen [Motrin] 600 mg PO Q6HR PRN #40 day 09/02/18 Allergies Allergy/AdvReac Type Severity Reaction Status Date / Time No Known Allergies Allergy Verified 09/02/18 14:56 Review of Systems ROS Statement: Those systems with pertinent positive or pertinent negative responses have been documented in the HPI. ROS Other: All systems not noted in ROS Statement are negative. Past Medical History Additional Past Medical History / Comment(s): MITRAL VALVE PROLAPSE, HEART MURMUR, ovarian cyst History of Any Multi-Drug Resistant Organisms: None Reported Past Surgical History: No Surgical Hx Reported Past Psychological History: Anxiety Smoking Status: Never smoker Past Alcohol Use History: None Reported Past Drug Use History: None Reported General Exam - General Exam Comments Initial Comments: Constitutional: NAD, AOX3, Pt has pleasant affect. HEENT: NC/AT, trachea midline, neck supple, no lymphadenopathy. Posterior pharynx non erythematous, without exudates. External ears appear normal, without discharge. Mucous membranes moist. Eyes PERRLA, EOM intact. There is no scleral icterus. No pallor noted. Cardiopulmonary: RRR, no murmurs, rubs or gallops, no JVD noted. Lungs CTAB in anterior and posterior rossi. No peripheral edema. Abdominal exam: Abdomen soft and non-distended. Abdomen non-tender to palpation in all 4 quadrants. Bowel sounds active in LLQ. No hepatosplenomegaly. No ecchymosis. Neuro: CN II-XII intact. MSK: No lower extremity swelling or edema. Posterior Nontender to palpation bilaterally. Cecily sign negative bilaterally. Bilateral rib pain tender on palpation. Thoracic back pain tender to palpation. Shoulder pain tender to palpation. Patient states that the pain that she experiences when I press on these locations is the pain that she has been complaining of the last 4 weeks.dorsalis pedis and posterior tibialis pulse +2 bilaterally. Radialis pulse +2 bilaterally. Limitations: no limitations Course Vital Signs 09/02/18 09/02/18 09/02/18 14:53 16:47 18:00 Temperature 98.6 F 99.2 F Pulse Rate 104 H 94 88 Respiratory 18 16 16 Rate Blood Pressure 137/81 115/65 118/55 O2 Sat by Pulse 100 97 96 Oximetry Medical Decision Making - Medical Decision Making 28-year-old female patient presents to ED with bilateral rib pain, shoulder pain , thoracic back pain. Patient was diagnosed at this ED with costochondritis approximately 4 weeks ago. At that time 4 weeks ago the patient was experiencing similar symptoms of bilateral rib pain, back pain. Pt was additionally evaluated 2 weeks ago at [facility] for similar symptoms. Patient states that this pain she is experiencing has been similar for a month. However the pain in both of her shoulders has been ongoing for approximately 2 weeks. Patient has additional pain in her thoracic spine all laying down. Patient states that nonsteroidal anti-inflammatories have been moderately effective in treating her symptoms. patient states that her pain is reproducible upon palpation. Patient has additional complaint of 2 days history rhinitis, congestion, sneezing. physical exam displayed normal heart or pulmonary HEENT and abdominal exam. MSK exam displayed No lower extremity swelling or edema. Posterior Nontender to palpation bilaterally. Cecily sign negative bilaterally. Bilateral rib pain tender on palpation. Thoracic back pain tender to palpation. Shoulder pain tender to palpation. Patient states that the pain that she experiences when I press on these locations is the pain that she has been complaining of the last 4 weeks.dorsalis pedis and posterior tibialis pulse +2 bilaterally. Radialis pulse +2 bilaterally. patient underwent extensive laboratory investigation. CBC, CMP, UA, influenza swabs were all unimpressive. EKG displayed normal sinus rhythm, no concerns for acute ischemia or arrhythmia. Patient underwent plain films ofthoracic spine, lumbar spine, chest x-ray. All these films did not reveal any acute abnormality. Long discussion patient that she is likely still suffering from the effects of costochondritis. Spent a substantial amount of time educating patient on costochondritis. Discussed with patient that she is likely also experiencing a viral upper respiratory infection, as coinciding with her previous symptoms. Prescribed patient ibuprofen to take as needed for pain. Patient to follow up with PCP for continued evaluation 1-2 days. Patient to return to ED if any new signs or symptoms develop including chest pain, shortness of breath, abdominal pain, nausea vomiting diarrhea, fevers chills, weakness, or any other new symptoms. - Lab Data Result diagrams: 09/02/18 16:40 09/02/18 16:40 Lab Results 09/02/18 09/02/18 09/02/18 Range/Units 16:40 16:40 16:40 WBC 7.5 (3.8-10.6) k/uL RBC 4.53 (3.80-5.40) m/uL Hgb 13.5 (11.4-16.0) gm/dL Hct 39.7 (34.0-46.0) % MCV 87.7 (80.0-100.0) fL MCH 29.7 (25.0-35.0) pg MCHC 33.9 (31.0-37.0) g/dL RDW 12.1 (11.5-15.5) % Plt Count 252 (150-450) k/uL Neutrophils % 71 % Lymphocytes % 20 % Monocytes % 5 % Eosinophils % 2 % Basophils % 0 % Neutrophils # 5.3 (1.3-7.7) k/uL Lymphocytes # 1.5 (1.0-4.8) k/uL Monocytes # 0.4 (0-1.0) k/uL Eosinophils # 0.2 (0-0.7) k/uL Basophils # 0.0 (0-0.2) k/uL Sodium (137-145) mmol/L Potassium (3.5-5.1) mmol/L Chloride (98-107) mmol/L Carbon Dioxide (22-30) mmol/L Anion Gap mmol/L BUN (7-17) mg/dL Creatinine (0.52-1.04) mg/dL Est GFR (CKD-EPI)AfAm (>60 ml/min/1.73 sqM) Est GFR (CKD-EPI)NonAf (>60 ml/min/1.73 sqM) Glucose (74-99) mg/dL Calcium (8.4-10.2) mg/dL Total Bilirubin (0.2-1.3) mg/dL AST (14-36) U/L ALT (9-52) U/L Alkaline Phosphatase (38-126) U/L Total Protein (6.3-8.2) g/dL Albumin (3.5-5.0) g/dL Urine Color Light Yellow Urine Appearance Clear (Clear) Urine pH 5.5 (5.0-8.0) Ur Specific [place] 1.007 (1.001-1.035) Urine Protein Negative (Negative) Urine Glucose (UA) Negative (Negative) Urine Ketones Negative (Negative) Urine Blood Negative (Negative) Urine Nitrite Negative (Negative) Urine Bilirubin Negative (Negative) Urine Urobilinogen <2.0 (<2.0) mg/dL Ur Leukocyte Esterase Negative (Negative) Urine HCG, Qual Not Detected (Not Detectd) Influenza Type A RNA (Not Detectd) Influenza Type B (PCR) (Not Detectd) 09/02/18 09/02/18 Range/Units 16:40 16:40 WBC (3.8-10.6) k/uL RBC (3.80-5.40) m/uL Hgb (11.4-16.0) gm/dL Hct (34.0-46.0) % MCV (80.0-100.0) fL MCH (25.0-35.0) pg MCHC (31.0-37.0) g/dL RDW (11.5-15.5) % Plt Count (150-450) k/uL Neutrophils % % Lymphocytes % % Monocytes % % Eosinophils % % Basophils % % Neutrophils # (1.3-7.7) k/uL Lymphocytes # (1.0-4.8) k/uL Monocytes # (0-1.0) k/uL Eosinophils # (0-0.7) k/uL Basophils # (0-0.2) k/uL Sodium 140 (137-145) mmol/L Potassium 4.1 (3.5-5.1) mmol/L Chloride 104 (98-107) mmol/L Carbon Dioxide 28 (22-30) mmol/L Anion Gap 8 mmol/L BUN 18 H (7-17) mg/dL Creatinine 0.83 (0.52-1.04) mg/dL Est GFR (CKD-EPI)AfAm >90 (>60 ml/min/1.73 sqM) Est GFR (CKD-EPI)NonAf >90 (>60 ml/min/1.73 sqM) Glucose 118 H (74-99) mg/dL Calcium 9.7 (8.4-10.2) mg/dL Total Bilirubin 0.3 (0.2-1.3) mg/dL AST 24 (14-36) U/L ALT 33 (9-52) U/L Alkaline Phosphatase 50 (38-126) U/L Total Protein 7.7 (6.3-8.2) g/dL Albumin 4.4 (3.5-5.0) g/dL Urine Color Urine Appearance (Clear) Urine pH (5.0-8.0) Ur Specific [place] (1.001-1.035) Urine Protein (Negative) Urine Glucose (UA) (Negative) Urine Ketones (Negative) Urine Blood (Negative) Urine Nitrite (Negative) Urine Bilirubin (Negative) Urine Urobilinogen (<2.0) mg/dL Ur Leukocyte Esterase (Negative) Urine HCG, Qual (Not Detectd) Influenza Type A RNA Not Detected (Not Detectd) Influenza Type B (PCR) Not Detected (Not Detectd) - EKG Data -: EKG Interpreted by Me EKG Comments: normal sinus rhythm, normal EKG. Ventricular rate 76, DC interval 136, QRS 82, QT/QTC 358, 402. No signs for acute ischemia Disposition Clinical Impression: Costochondritis, Viral upper respiratory illness Disposition: HOME SELF-CARE Condition: Good Instructions: Costochondritis (ED), Upper Respiratory Infection (ED) Additional Instructions: Patient to adhere to previously discussed treatment plan and will take medication(s) as directed. Patient to follow up with PCP in 1-2 days. Patient to return to ED if symptoms do not improve. Prescriptions: Ibuprofen [Motrin] 600 mg PO Q6HR PRN #40 day PRN Reason: Pain Is patient prescribed a controlled substance at d/c from ED?: No Referrals: Layla Mccann DO [Primary Care Provider] - 1-2 days
[2018-09-02 18:04] VITALS: BP 118/55; PULSE 88
== END 2018-09-02 18:00 | disposition home or self-care (01) ==
LOC: EC 14:46
DX: M94.0 Chondrocostal junction syndrome [Tietze] (principal); J06.9 Acute upper respiratory infection, unspecified; M25.511 Pain in right shoulder; M25.512 Pain in left shoulder; F41.9 Anxiety disorder, unspecified; Z79.899 Other long term (current) drug therapy
CPT/HCPCS: 36415; 93005; 80053; 85025; 81003; 81025; 87502; 72070; 72100; 71046; 99284; 96372; J1885

== ENCOUNTER → 2020-03-29 | Outpatient (CLI) | payer OTHER ==
--- NOTE | 2020-03-30 07:25 | US ---
EXAMINATION TYPE: US thyroid st tissue head/neck DATE OF EXAM: 03/29/2020 COMPARISON: NONE CLINICAL HISTORY: R22.1 SWELLING. neck fullness, patient states history of neck fullness recently, gr andmother had thyroid ca, patient felt midline to the left of neck was wade then other areas in nec k No obvious abnormality seen bilaterally. IMPRESSION: No distinct solid or cystic mass identified.
== END | disposition home or self-care (01) ==
LOC: RADUSWWP 16:08
PROVIDERS: ATTEND Internal Medicine
DX: R22.1 Localized swelling, mass and lump, neck (principal)
CPT/HCPCS: 76536

== ENCOUNTER 2022-10-14 00:06 | Emergency (ER) | payer OTHER ==
[2022-10-14 00:11] VITALS: BP 135/84; PULSE 80; RESP 18; TEMP 98.2
--- NOTE | 2022-10-14 02:56 | ED ---
Head Injury HPI - General Chief complaint: Head Injury Stated complaint: Head Injury Time Seen by Provider: 10/14/22 02:41 Source: patient Mode of arrival: ambulatory Limitations: no limitations - History of Present Illness Initial comments: This patient is a 32-year-old woman who presents to have evaluation following close injury. The patient states she was doing some remodeling work evening. She states that piece of wood fell and struck her left forehead. She states that there was no loss consciousness. She did have an initial episode of vomiting. She took a dose of Tylenol and after 15 minutes the headache resolved she has not had any neurologic symptoms. No change in her vision. No neck pain. There was a moderate amount of swelling which has come down since that time. The patient presents today because her mother urged her to be seen. MD Complaint: head injury Onset/Timin -: days(s) Mechanism of Injury: work related injury Location: frontal Loss of Consciousness: no Previous Trauma to this Area: No Place: home Radiation: none Severity scale (1-10): 0 Provoking factors: none known Other Injuries: none Associated Symptoms: denies other symptoms - Related Data Home Medications Medication Instructions Recorded Confirmed Cholecalciferol [Vitamin D3] 400 unit PO HS 03/25/17 01/21/18 Ferrous Sulfate [Feosol] 325 mg PO HS 01/21/18 01/21/18 PARoxetine [Paxil] 10 mg PO HS 01/21/18 01/21/18 Potassium 99 mg PO HS 01/21/18 01/21/18 Previous Rx's Medication Instructions Recorded Amoxicillin/Potassium Clav 1 tab PO Q12HR #20 tab 07/01/18 [Augmentin 875-125 Tablet] Ibuprofen [Motrin] 600 mg PO Q8HR PRN #90 tab 08/03/18 Ibuprofen [Motrin] 600 mg PO Q6HR PRN #40 day 09/02/18 Allergies/Adverse reactions: Allergies Allergy/AdvReac Type Severity Reaction Status Date / Time No Known Allergies Allergy Verified 10/14/22 00:10 Review of Systems ROS Statement: Those systems with pertinent positive or pertinent negative responses have been documented in the HPI. ROS Other: All systems not noted in ROS Statement are negative. Constitutional: Denies: fever, weakness Eyes: Denies: eye pain, vision change ENT: Denies: ear pain, hearing loss, epistaxis Respiratory: Denies: cough, dyspnea Cardiovascular: Denies: chest pain, syncope Gastrointestinal: Reports: as per HPI, vomiting Musculoskeletal: Denies: back pain Skin: Denies: rash Neurological: Reports: as per HPI, headache. Denies: weakness, numbness, paresthesias, confusion Hematological/Lymphatic: Denies: easy bleeding Past Medical History Additional Past Medical History / Comment(s): MITRAL VALVE PROLAPSE, HEART MURMUR, ovarian cyst History of Any Multi-Drug Resistant Organisms: None Reported Past Surgical History: No Surgical Hx Reported Past Psychological History: Anxiety Smoking Status: Never smoker Past Alcohol Use History: Occasional Past Drug Use History: None Reported General Exam Limitations: no limitations General appearance: alert, in no apparent distress Head exam: Present: normocephalic, other (Small contusion left frontal temporal. There is no bony tenderness or deformity) Eye exam: Present: normal appearance, PERRL, EOMI. Absent: scleral icterus, conjunctival injection, nystagmus, periorbital swelling, periorbital tenderness ENT exam: Present: normal oropharynx Neck exam: Present: normal inspection, full ROM. Absent: tenderness, meningismus Respiratory exam: Present: normal lung sounds bilaterally. Absent: respiratory distress, wheezes, rales, rhonchi, stridor Cardiovascular Exam: Present: regular rate, normal rhythm, normal heart sounds. Absent: systolic murmur, diastolic murmur, rubs, gallop Neurological exam: Present: alert, oriented X3, CN II-XII intact. Absent: motor sensory deficit Skin exam: Present: warm, dry, intact, normal color. Absent: rash Course Vital Signs 10/14/22 00:08 Temperature 98.2 F Pulse Rate 80 Respiratory 18 Rate Blood Pressure 135/84 O2 Sat by Pulse 100 Oximetry Disposition Clinical Impression: Closed head injury Disposition: HOME SELF-CARE Condition: Good Instructions (If sedation given, give patient instructions): Head Injury (ED) Is patient prescribed a controlled substance at d/c from ED?: No Referrals: Feroz Alaniz MD [Primary Care Provider] - 1-2 days Yohan Case MD [STAFF PHYSICIAN] - 1-2 days
== END 2022-10-14 03:05 | disposition home or self-care (01) ==
LOC: EC 00:06
DX: S00.83XA Contusion of other part of head, initial encounter (principal); F41.9 Anxiety disorder, unspecified; W22.8XXA Striking against or struck by other objects, initial encounter; Y92.009 Unspecified place in unspecified non-institutional (private) residence as the place of occurrence of the external cause
CPT/HCPCS: 99283

== ENCOUNTER → 2024-12-18 | Outpatient (CLI) | payer OTHER ==
--- NOTE | 2024-12-18 08:12 | USB ---
Reason for Exam: Clinical finding. Risk Values: Lyubov 5 year model risk: 0.2%. NCI Lifetime model risk: 6.9%. Technique: Method: Whole Breast Handheld. Prior Study Comparison: No prior studies available for comparison. Findings: The whole breast of both breasts, the axilla of both breasts and the retroareolar of both breasts were scanned. A complete US of all four quadrants of the bilateral breasts, axilla, and retro-areolar region were reviewed. On the right, dense tissue is present throughout. At the 12:00 palpable side, close to the nipple, there is a tiny 4 mm cyst adjacent to dense tissue. Additional 7 mm cyst cluster is also present here. There are small cysts also noted measuring up to 7 mm scattered throughout the breast. Otherwise, no suspicious solid or cystic lesion or axillary adenopathy. On the left, dense tissue is present throughout. Scattered benign cysts are present. Dominant cyst measuring 1.9 cm at 12:00, 3 cm from the nipple and 1.8 cm 11:00 position, 1 cm from the nipple. At 1:00, 7 cm from the nipple is a lobulated hypoechoic solid appearing mass with through transmission measuring 1.5 x 1.5 x 0.9 cm. Possible punctate internal calcification. Fibroadenoma is suspected. Biopsy recommended. No axillary adenopathy. ASSESSMENT : 4 - Suspicious. Management: Ultrasound Core Biopsy of the left breast. Percutaneous aspiration can also be considered for any of the dominant cysts if they become symptomatic. Results were given to the patient verbally at the time of exam. [facility], , 12/18/2024 8:09 AM. Electronically signed and approved by: Beverley Elias M.D. Radiologist
== END | disposition home or self-care (01) ==
LOC: RADUSWWP 07:17
PROVIDERS: ATTEND Student in an Organized Health Care Education/Training Program
DX: N63.10 Unspecified lump in the right breast, unspecified quadrant (principal)

== ENCOUNTER → 2024-12-26 | Day surgery (SDC) | payer OTHER ==
--- NOTE | 2025-01-01 10:23 | USB ---
Risk Values: Lyubov 5 year model risk: 0.2%. NCI Lifetime model risk: 6.9%. Pathology Description: Location: 1 o'clock. Marker Left Behind. Approach: Lateral to Medial Needle Type: Celero Cores: 4 Gauge: 13 post procedure mammogram not done The procedure of ultrasound guided core biopsy was explained to the patient. Benefits, alternatives, and risks were discussed. An informed consent was then obtained. The patient was placed in supine positioning for imaging and for the procedure. The overlying skin was prepped and draped in usual sterile fashion. Lidocaine buffered with bicarbonate was used as anesthetic into the skin and subcutaneous tissue up to area of concern in the left 1:00 breast breast. Under ultrasound guidance, a 12-gauge vacuum assisted biopsy gun device was used to obtain 3 core samples. Following this, a biopsy clip was left in lesion. The patient tolerated the procedure well without any immediate complication. The patient was kept in the radiology department for short stay after the procedure and then discharged home in stable condition. Postprocedure mammogram: Was not obtained. Impression: Successful, uncomplicated ultrasound guided core biopsy of area of concern in the left 1:00 breast, full pathology results to follow. [facility], , 12/26/2024 11:58 AM. Pathology Results: Result: Benign, Fibroadenoma. Pathology and radiology were reviewed. Findings are concordant. LEFT BREAST, 1:00 7 CMFN, ULTRASOUND GUIDED NEEDLE CORE BIOPSY: Fibroadenoma with tubular features (tubular adenoma). See note. Notes Calponin immunostain performed on block A1 and smooth muscle myosin heavy chain (SMMHC) performed on block A2 each highlight a myoepithelial layer surrounding glandular and tubular structures within the lesion. The results confirm the diagnosis of fibroadenoma with tubular features (tubular adenoma). All immunostains were evaluated with appropriate positive controls. Overall Assessment: Benign Management: Diagnostic Breast Ultrasound of the left breast in 6 months. Electronically signed and approved by: Gagandeep Hooks M.D. Radiologis
== END ==
LOC: RADUSWWP 10:07
PROVIDERS: ATTEND Student in an Organized Health Care Education/Training Program
DX: D24.2 Benign neoplasm of left breast (principal); R92.8 Other abnormal and inconclusive findings on diagnostic imaging of breast
CPT/HCPCS: 88305; 88342; 88341; 19083; A4648